=== PATIENT | female | born 1965 | race Caucasian/White ===

== ENCOUNTER 2016-05-27 21:07 | Emergency (ER) | payer OTHER ==
[2016-05-27 21:27] LABS: BASOPHIL 0.4 % (0-2); EOSINOPHIL 2.8 % (0-5); HCT 44.1 % (37.0-47.0); HGB 14.7 g/dl (12.5-16.0); MCH 31.1 pg (25.0-31.0); MCHC 33.3 g/dL (32.0-36.0); MCV 93.4 fL (78.0-100.0); MONOCYTE 7.2 % (0-12); MPV 10.4 fL (6.0-9.5); NEUTROPHIL 61.6 % (41-80); PLT 299 K/uL (150-400); RBC 4.72 M/uL (4.20-5.40); RDW 13.1 % (11.5-14.0); WBC 11.9 K/uL (4.0-10.5)
[2016-05-27 21:33] LABS: INR 0.95 (0.9-1.2); PROTHROMBIN TIME 12.3 SECONDS (11.7-14.0)
[2016-05-27 21:34] LABS: PTT 27.5 SECONDS (23.2-31.4)
[2016-05-27 21:35] LABS: D-DIMER 0.58 ug/mLFEU (0.00-0.41)
[2016-05-27 21:40] LABS: ALBUMIN 4.3 g/dL (3.5-5.0); BILIRUBIN - TOTAL 0.3 mg/dL (0.1-1.0); CREATININE 0.7 mg/dL (0.5-1.0); GLOBULIN (CALCULATION) 2.7 g/dL (2.2-4.2); MAGNESIUM 1.6 mg/dL (1.40-2.10)
[2016-05-27 21:42] LABS: CKMB 1.75 ng/mL (0.97-4.94); MYOGLOBIN 21 ng/mL (26-65); PRO-BNP 93 pg/mL (0-125); TROPONIN T < 0.010 ng/mL
== END 2016-05-28 01:17 | disposition home or self-care (01) ==
LOC: FER 21:07
PROVIDERS: Emergency Medicine
DX: R07.9 Chest pain, unspecified (principal); Z88.0 Allergy status to penicillin
CPT/HCPCS: 36415; 71010; 71275; 80053; 82550; 82553; 83690; 83735; 83874; 83880; 84484; 85025; 85379; 85610; 85730; 93005; Q9967